=== PATIENT | female | born 1945 | race African-American/Black ===

== ENCOUNTER 2020-02-04 15:30 | Emergency (ER) | payer OTHER ==
[~2020-02-04] VITALS: Ht 172.7 cm; Wt 73.0 kg
[2020-02-04] MEDS ORDERED: SODIUM CHLORIDE 0.9% 1,000 ML IV ONE (17:03)
[2020-02-04 17:25] LABS: BASOPHILS % 0.4 % (0.0-2.0); EOSINOPHILS % 2.2 % (0.0-5.0); HEMATOCRIT. 41.1 % (36.0-48.0); HEMOGLOBIN. 13.4 g/dL (12.0-16.0); MEAN CORPUSCULAR HEMOGLOBIN 28.2 pg (28.0-32.0); MEAN CORPUSCULAR VOLUME 86.4 fL (81.0-99.0); MEAN PLATELET VOLUME 9.9 fl (7.4-10.4); MONOCYTES % 9.2 % (2.0-8.0); NEUTROPHILS % 66.2 % (40.0-76.0); PLATELET 259 x1000/uL (130-400); RED BLOOD CELL COUNT 4.75 mill/uL (4.2-5.4); RED CELL DISTRIBUTION WIDTH 17.2 % (11.6-14.6)
[2020-02-04 17:30] LABS: CHLORIDE 106 mEq/L (98-107)
[2020-02-04] MEDS ORDERED: ASPIRIN 325MG EC TABLET PO ONE (18:45)
[2020-02-04] MEDS ORDERED: DEXTROSE 50% WATER 50ML SYRINGE IV ONE (19:45)
[2020-02-04 21:00] VITALS: BP 146/66
[2020-02-04 23:03] LABS: CLARITY URINE CLOUDY (CLEAR); COLOR URINE DARK YELLOW (YELLOW); KETONES URINE 2+ (NEGATIVE); LEUKOCYTE ESTERASE URINE 3+ (NEGATIVE); NITRITE URINE NEGATIVE (NEGATIVE); OCCULT BLOOD URINE NEGATIVE (NEGATIVE); PH URINE 5.5 (4.5-8.0); PROTEIN URINE 1+ (NEGATIVE); SPECIFIC GRAVITY URINE 1.027 (1.005-1.030)
== END 2020-02-04 22:42 | disposition short-term general hospital (02) ==
LOC: ER 15:36 → CANBEDREQ 02-05 14:12
DX: E16.2 Hypoglycemia, unspecified (principal); R41.82 Altered mental status, unspecified; I10 Essential (primary) hypertension; Z88.0 Allergy status to penicillin
CPT/HCPCS: 36415; 70450; 71045; 80053; 81003; 82962; 83880; 84484; 85025; 87086; 93005; 96374; 99285; J7030

== ENCOUNTER 2023-01-31 16:47 | Emergency (ER) | payer OTHER ==
[~2023-01-31] VITALS: Ht 162.6 cm; Wt 99.0 kg
[2023-01-31 16:52] VITALS: O2SAT 98
[2023-01-31] MEDS ORDERED: ACETAMINOPHEN 325MG TABLET PO ONE (18:15)
[2023-01-31 18:24] LABS: BASOPHILS % 0.2 % (0.0-2.0); EOSINOPHILS % 0.5 % (0.0-5.0); HEMATOCRIT. 35.1 % (36.0-48.0); HEMOGLOBIN. 11.5 g/dL (12.0-16.0); LYMPHOCYTES % 14.6 % (20.0-50.0); MEAN CORPUSCULAR HEMOGLOBIN 27.4 pg (28.0-32.0); MEAN CORPUSCULAR VOLUME 83.6 fL (81.0-99.0); MEAN PLATELET VOLUME 8.7 fl (7.4-10.4); MONOCYTES % 11.3 % (2.0-8.0); NEUTROPHILS % 73.4 % (40.0-76.0); PLATELET 271 x1000/uL (130-400); RED CELL DISTRIBUTION WIDTH 14.5 % (11.6-14.6)
[2023-01-31 18:24] LABS: BG BASE EXCESS -0.1 mmol/L (-2.0-2.0); BG CARBOXYHEMOGLOBIN 0.3 % (0.5-1.5); BG DEOXYHEMOGLOBIN 4.7 % (0.0-5.0); BG FRACTION INSPIRED OXYGEN 21; BG HCO3 ACT 21.8 mmol/L (22.0-26.0); BG METHEMOGLOBIN 0.3 % (0.0-1.5); BG OXYGEN SATURATION 95.3 % (92.0-98.5); BG OXYHEMOGLOBIN 94.7 % (94.0-97.0); BG PCO2 27.5 mmHg (35.0-45.0); BG PH 7.516 (7.350-7.450); BG PO2 72.8 mmHg (75.0-100.0); BG SAMPLE SITE RIGHT RADIAL; BG TOTAL HEMOGLOBIN 12.4 g/dL (12.0-18.0); BG VENT MODE ROOM AIR
[2023-01-31 18:29] LABS: CLARITY URINE CLEAR (CLEAR); COLOR URINE DARK YELLOW (YELLOW); KETONES URINE NEGATIVE (NEGATIVE); LEUKOCYTE ESTERASE URINE TRACE (NEGATIVE); NITRITE URINE NEGATIVE (NEGATIVE); OCCULT BLOOD URINE 2+ (NEGATIVE); PH URINE 5.5 (4.5-8.0); PROTEIN URINE 1+ (NEGATIVE); SPECIFIC GRAVITY URINE 1.021 (1.005-1.030)
[2023-01-31 18:34] LABS: CHLORIDE 108 mEq/L (98-107)
[2023-01-31 18:52] LABS: *AMPHETAMINES SCREEN URINE NEGATIVE (NEGATIVE); *BARBITURATES SCREEN URINE NEGATIVE (NEGATIVE); *BENZODIAZEPINES SCREEN URINE NEGATIVE (NEGATIVE); *COCAINE SCREEN URINE NEGATIVE (NEGATIVE); CANNABINOID URINE SCREEN NEGATIVE (NEGATIVE); CREATINE KINASE 340 IU/L (26-192); ETHANOL BLOOD < 10 mg/dL (-10); METHADONE URINE SCREEN NEGATIVE (NEGATIVE); OPIATES URINE SCREEN NEGATIVE (NEGATIVE); PHENCYCLIDINE URINE SCREEN NEGATIVE (NEGATIVE)
[2023-01-31] MEDS ORDERED: ACETAMINOPHEN 325MG TABLET PO NR (20:00)
[2023-01-31] MEDS ORDERED: NITROFURANTOIN 100MG M/M CAPSULE PO NR (20:15)
[2023-01-31] MEDS ORDERED: ASPIRIN 325MG EC TABLET PO NR (23:00)
[2023-02-01 07:14] VITALS: BP 134/69; PULSE 89; RESP 20; TEMP 99.3
== END 2023-02-01 07:22 | disposition short-term general hospital (02) ==
LOC: ER 16:47 → CANBEDREQ 02-01 20:09
DX: R47.01 Aphasia (principal); N39.0 Urinary tract infection, site not specified; E11.9 Type 2 diabetes mellitus without complications; I10 Essential (primary) hypertension; M79.7 Fibromyalgia
CPT/HCPCS: 36415; 36600; 71045; 80053; 80305; 80307; 80320; 80329; 81003; 82140; 82375; 82550; 82805; 82962; 83605; 84145; 84443; 84484; 85025; 86850; 86900; 93005; 99285; G0480